=== PATIENT | male | born 2000 | race Caucasian/White ===

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

== ENCOUNTER 2022-12-01 14:32 | Emergency (ER) | payer OTHER ==
--- OUTSIDE RECORDS SUMMARY | 2022-12-01 14:36 | XMS REPORT | Continuity of Care Document ---
:2000 Author Organization [facility] t Address [address] [place] [address] Care Team Providers Name Role Phone ROSANGELA Attending Clinician Unavailable Antony Mary Attending Clinician [phone] ROSANGELA Admitting Clinician Unavailable Payers Payer Name Policy Type Policy Number Effective Date Expiration Date Patrick chapman MEDICARE [place]: [id number] 2018 [address] 00:00:00 Problems Condition Condition Condition Status Onset Resolution Last Treating Co mments Source Name Details Category Date Date Treatment Clinician Date Learning Learning Problem Active Sween y difficulti Difficulti 07-05 Co mmuni es [facility]:00: [facility] Seasonal Seasonal Problem Active Sween y allergy Allergy 07-05 Communi 00:00: ty 00 [facility] Allergies, Adverse Reactions, Alerts This patient has no known allergies or adverse reactions. Social History Smoking Status Start Date Stop Date Source Never Smoker [facility] Medications This patient has no known medications. Vital Signs Vital Name Observation Time Observation Value Comments Source BMI (Body Mass 2021-07-05 00:00:00 24.7 kg/m2 [facility] BP Systolic 2021-07-05 00:00:00 130 mm[Hg] [facility] Body Weight 2021-07-05 00:00:00 2528 [oz_av] [facility] s BP Diastolic 2021-07-05 00:00:00 78 mm[Hg] [facility] s Height 2021-07-05 00:00:00 67 [in_i] [facility] s Procedures Procedure Date / Time Performed Performing Clinician Sourbrett e XR, nasal bones 2021-07-05 00:00:00 [facility] Procedure on Nose [facility] Encounters Start End Encounter Admission Attending Care Care Encounter Source Date/Time Date/Time Type Type Clinicians Facility Department ID 2021-07-05 2021-07-05 Outpatient EMMY_R [facility] [id number] - [place] 06:58:00 06:58:00 531 [facility] 2021-07-05 2021-07-05 Outpatient Emmy [facility] [id number] 00:00:00 00:00:00 Antony [id number] [place] [id number] 2021-07-05 2021-07-05 Antony [facility] [place] - [place] 00:00:00 [facility]:00:[facility] [address] [facility] [address], HOSPITAL Clinic s [place], [id number] EMMY , Ph. [phone] Results This patient has no known results.
[2022-12-01 15:11] LABS: Absolute Lymphocytes (CBC) 2.3 K/uL (0.7-4.9); Hematocrit 48.3 % (39.6-49.0); Lymphocytes % 30.2 % (15.3-44.8); MCV 87.6 fL (80-100); MPV 8.1 fL (7.6-11.3); Platelets 184 thou/uL (152-406); RBC Red Blood Cell Count 5.51 M/uL (4.33-5.43)
[2022-12-01 15:13] LABS: Specific Gravity 1.025 (1.005-1.030); Urine Bacteria None Seen /HPF (<20); Urine Bilirubin NEGATIVE (Negative); Urine Blood Negative (Negative); Urine Clarity Clear (Clear); Urine Color Yellow (Yellow); Urine Glucose NEGATIVE (Negative); Urine Mucus 2+ /HPF (None Seen); Urine Protein TRACE (Negative); Urine RBC <5 /HPF (None Seen); Urine Urobilinogen Normal (Normal); Urine pH 5.5 (5.0-7.0)
--- NOTE | 2022-12-01 15:27 | RAD REPORT ---
EXAM DESCRIPTION: CT - Abdomen Pelvis W Contrast - 12/01/2022 3:17 pm CLINICAL HISTORY: Abdominal pain COMPARISON: none. TECHNIQUE: Computed axial tomography of the abdomen pelvis was obtained. 100 cc Isovue-300 was admin istered intravenously. Oral contrast was not requested which limits evaluation of bowel and appendix All CT scans are performed using dose optimization technique as appropriate and may include automated exposure control or mA/KV adjustment according to patient size. FINDINGS: The liver, spleen, pancreas, adrenal and kidneys appear unremarkable. There is no evidence of diverticulitis. Normal appendix Fluid within nondilated large and small bowel IMPRESSION: Fluid within nondilated large and small bowel may indicate an enteritis
[2022-12-01 15:28] LABS: Albumin 4.1 g/dL (3.4-5.0); Bilirubin Total 0.6 mg/dL (0.2-1.0); Potassium 3.7 mEq/L (3.5-5.1); Protein, Total 8.4 g/dL (6.4-8.2)
[2022-12-01] MEDS ORDERED: MORPHINE 4 MG/ML SYR ONE (17:01)
[2022-12-01] MEDS ORDERED: ONDANSETRON 4 MG/2 ML VIAL ONE (17:01)
[2022-12-01] MEDS ORDERED: FAMOTIDINE 20 MG/2 ML VIAL IV ONE (17:01)
[2022-12-01] MEDS ORDERED: NA CHLORIDE 0.9% 1,000 ML ONE (17:01)
--- NOTE | 2022-12-01 17:09 | EDPHYS ---
Physician Documentation [facility] Name: Yovanny Piña Age: 22 yrs Sex: Male : 2000 Arrival Date: 12/01/2022 Time: 14:32 Bed 11 Private MD: ED Physician Adryan Corona HPI: 12/01 17:04 This 22 yrs old Male presents to ER via Ambulatory with complaints of sesar Abdominal Pain. 17:04 The patient presents with abdominal pain in the upper abdomen, in the lower abdomen. sesar Onset: The symptoms/episode began/occurred 3 day(s) ago. The patient presents to the emergency department with nausea, diarrhea, abdominal pain, of the right upper quadrant, left upper quadrant, right lower quadrant and left lower quadrant. Historical: - Allergies: 14:46 No Known Allergies; tm6 - PMHx: 14:46 None; tm6 - PSHx: 14:46 None; tm6 - Immunization history:: Adult Immunizations up to date, Client reports having NOT received the Covid vaccine. - Social history:: Smoking status: Reported history of juuling and/or vaping. Patient/guardian denies using alcohol. ROS: 17:05 Constitutional: Negative for fever, chills, and weight loss, Eyes: Negative for injury, sesar pain, redness, and discharge, ENT: Negative for injury, pain, and discharge, Neck: Negative for injury, pain, and swelling, Cardiovascular: Negative for chest pain, palpitations, and edema, Respiratory: Negative for shortness of breath, cough, wheezing, and pleuritic chest pain, Back: Negative for injury and pain, : Negative for injury, bleeding, discharge, and swelling, MS/Extremity: Negative for injury and deformity, Skin: Negative for injury, rash, and discoloration, Neuro: Negative for headache, weakness, numbness, tingling, and seizure, Psych: Negative for depression, anxiety, suicide ideation, homicidal ideation, and hallucinations, Allergy/Immunology: Negative for hives, rash, and allergies, Endocrine: Negative for neck swelling, polydipsia, polyuria, polyphagia, and marked weight changes, Hematologic/Lymphatic: Negative for swollen nodes, abnormal bleeding, and unusual bruising, 17:05 Abdomen/GI: Positive for abdominal pain, nausea, diarrhea, abdominal cramps, Exam: 17:05 Constitutional: This is a well developed, well nourished patient who is awake, alert, sesar and in no acute distress. Head/Face: Normocephalic, atraumatic. Eyes: Pupils equal round and reactive to light, extra-ocular motions intact. Lids and lashes normal. Conjunctiva and sclera are non-icteric and not injected. Cornea within normal limits. Periorbital areas with no swelling, redness, or edema. ENT: Nares patent. No nasal discharge, no septal abnormalities noted. Tympanic membranes are normal and external auditory canals are clear. Oropharynx with no redness, swelling, or masses, exudates, or evidence of obstruction, uvula midline. Mucous membranes moist. Neck: Trachea midline, no thyromegaly or masses palpated, and no cervical lymphadenopathy. Supple, full range of motion without nuchal rigidity, or vertebral point tenderness. No Meningismus. Chest/axilla: Normal chest wall appearance and motion. Nontender with no deformity. No lesions are appreciated. Cardiovascular: Regular rate and rhythm with a normal S1 and S2. No gallops, murmurs, or rubs. Normal PMI, no JVD. No pulse deficits. Respiratory: Lungs have equal breath sounds bilaterally, clear to auscultation and percussion. No rales, rhonchi or wheezes noted. No increased work of breathing, no retractions or nasal flaring. Back: No spinal tenderness. No costovertebral tenderness. Full range of motion. Male : Normal genitalia with no discharge or lesions. Skin: Warm, dry with normal turgor. Normal color with no rashes, no lesions, and no evidence of cellulitis. MS/ Extremity: Pulses equal, no cyanosis. Neurovascular intact. Full, normal range of motion. Neuro: Awake and alert, GCS 15, oriented to person, place, time, and situation. Cranial nerves II-XII grossly intact. Motor strength 5/5 in all extremities. Sensory grossly intact. Cerebellar exam normal. Normal gait. Psych: Awake, alert, with orientation to person, place and time. Behavior, mood, and affect are within normal limits. 17:05 Abdomen/GI: Inspection: abdomen appears normal, Bowel sounds: hyperactive, in all quadrants, Palpation: mild abdominal tenderness, in all quadrants, Liver: no appreciated palpable abnormalities, Hernia: not appreciated, Vital Signs: 14:47 Pulse 72; Resp 18; Temp 99.4(TE); Pulse Ox 100% on R/A; Weight 68.04 kg; Height 5 ft. 6 tm6 in. ; Pain 8/10; 16:57 BP 137 / 100; Pulse 82; Resp 17; Pulse Ox 99% on R/A; kd3 17:56 BP 127 / 84; Pulse 84; Resp 16; Pulse Ox 99% on R/A; kd3 14:47 Body Mass Index 24.21 (68.04 kg, 167.64 cm) tm6 14:47 Pain Scale: Adult tm6 MDM: 14:53 Patient medically screened. sesar 17:06 Differential diagnosis: Nonspecific abd pain, gastritis, cholecystitis, pancreatitis, sesar diverticulitis, viral gastroenteritis, gastroenteritis, appendicitis, bowel obstruction, Cholelithiasis, diverticulitis, gastritis, gastroesophageal reflux disease, GI Bleed, Hepatitis, Irritable bowel syndrome, Mesenteric ischemia or infarction, non-specific abd pain, pancreatitis, Peptic Ulcer Disease, Peritonitis, Prostatitis, Pyelonephritis, urinary tract infection. Data reviewed: vital signs, nurses notes, lab test result(s), radiologic studies, CT scan. Consideration of Admission/Observation Escalation of care including admission/observation considered. I considered the following discharge prescriptions or medication management in the emergency department Medications were administered in the Emergency Department. See MAR. Independent interpretation of the following test(s) in the Emergency Department CT Scan: My interpretation is ENTERITIS. Test considered but Not performed: EKG: NO EKG. Historians other than the Patient: Family Member: MOM, INFORMED. Care significantly affected by the following chronic conditions: NONE. Counseling: I had a detailed discussion with the patient and/or guardian regarding the historical points, exam findings, and any diagnostic results supporting the discharge/admit diagnosis, lab results, radiology results, the need for outpatient follow up, for definitive care, a family practitioner, a research animal attendant. 12/01 14:45 Order name: CBC with Diff; Complete Time: 15:57 tm6 12/01 14:45 Order name: CMP; Complete Time: 15:57 tm6 12/01 14:45 Order name: Lipase; Complete Time: 15:57 tm6 12/01 14:45 Order name: Urinalysis w/ reflexes; Complete Time: 15:57 tm6 12/01 14:54 Order name: CT Abd/Pelvis - IV Contrast Only; Complete Time: 15:57 sesar 12/01 14:45 Order name: IV Saline Lock; Complete Time: 14:51 tm6 12/01 14:45 Order name: Labs collected and sent; Complete Time: 14:51 tm6 12/01 17:04 Order name: PO challenge; Complete Time: 17:14 sesar Administered Medications: 16:56 Drug: NS 0.9% IV 1000 ml IV at 1 bolus Per protocol; 1000 mL bolus Route: IV; Rate: 1 kd3 bolus; Site: right antecubital; 16:56 Drug: morphine IVP or IV 4 mg IVP once over 4 mins Route: IVP; Infused Over: 4 mins; kd3 Site: right antecubital; 16:56 Drug: Ondansetron IVP 4 mg IVP once; over 2 minutes Route: IVP; Site: right antecubital;kd3 16:56 Drug: Famotidine IVP 20 mg IVP once; dilute with 10 mL 0.9% NaCl; give over 2 minutes kd3 Route: IVP; Site: right antecubital; 17:58 Drug: Ciprofloxacin PO 500 mg PO once Route: PO; kd3 Disposition Summary: 12/01/22 17:09 Discharge Ordered Notes: Location: Home [facility] Problem: new sesar Symptoms: have improved sesar Condition: Stable sesar Diagnosis - Abdominal pain, Generalized sesar - Other specified noninfective gastroenteritis and colitis sesar - Diarrhea, unspecified sesar Followup: sesar - With: Private Physician - When: 2 - 3 days - Reason: Recheck today's complaints, Continuance of care, Re-evaluation by your physician Followup: sesar - With: Luis Angel Kimball MD - When: 2 - 3 days - Reason: Recheck today's complaints, Re-evaluation by your physician Discharge Instructions: - Discharge Summary Sheet sesar - Abdominal Pain, Adult sesar - Food Choices to Help Relieve Diarrhea, Adult sesar - Diarrhea, Adult sesar - Viral Gastroenteritis, Adult sesar - Viral Gastroenteritis, Adult, [id number]-gn-[id number] sesar - Abdominal Pain, Adult, [id number]-Ywnl sesar - Diarrhea, Adult, [id number] sesar Forms: - Medication Reconciliation Form sesar - Thank You Letter sesar - Antibiotic Education sesar - Prescription Opioid Use sesar - Patient Portal Instructions [facility] - Leadership Thank You Letter [facility] Prescriptions: - ondansetron 4 mg Oral Tablet,disintegrating - take 1 tablet ORAL route every 6 to 8 hours for 5 days; 20 tablet; Refills: 0, [facility] Product Selection Permitted - Cipro 250 mg Oral tablet - take 1 tablet ORAL route every 12 hours for 7 days; 14 tablet; Refills: 0, [facility] Product Selection Permitted - Flagyl 500 mg Oral Tablet - take 1 tablet ORAL route every 12 hours for 7 days; 14 tablet; Refills: 0, [facility] Product Selection Permitted - dicyclomine 10 mg/5 mL Oral solution - take 10 milliliters ORAL route 4 times per day; 200 milliliter; Refills: 0, [facility] Product Selection Permitted Signatures: Dispatcher [employer] EDAdryan Marcos MD MD cha Doucette, Kyli RN RN kd3 Car Guerrero RN RN tm6 Corrections: (The following items were deleted from the chart) 14:47 14:46 PMHx: None; tm6 tm6
--- NOTE | 2022-12-01 17:09 | ER ---
Nurse's Notes [facility] Name: Yovanny Piña Age: 22 yrs Sex: Male : 2000 Arrival Date: 12/01/2022 Time: 14:32 Bed 11 Private MD: Diagnosis: Abdominal pain, Generalized;Other specified noninfective gastroenteritis and colitis;Diarrhea, unspecified Presentation: 12/01 14:47 Chief complaint: Patient states: intermittent stomach ache/pain, all over abdomen, tm6 started Sunday. Coronavirus screen: Vaccine status: Patient reports being unvaccinated. Client denies travel out of the [place] in the last 14 days. Client indicates they have traveled out of the [place] in the last 14 days. At this time, unable to obtain information related to travel outside the [place] Ebola Screen: Patient negative for fever greater than or equal to 101.5 degrees Fahrenheit, and additional compatible Ebola Virus Disease symptoms Patient denies exposure to infectious person. Patient denies travel to an Ebola-affected area in the 21 days before illness onset. No symptoms or risks identified at this time. Initial Sepsis Screen: Does the patient meet any 2 criteria? No. Patient's initial sepsis screen is negative. Does the patient have a suspected source of infection? No. Patient's initial sepsis screen is negative. Risk Assessment: Do you want to hurt yourself or someone else? Patient reports no desire to harm self or others. Onset of symptoms was November 28, 2022. 14:47 Method Of Arrival: Ambulatory tm6 14:47 Acuity: ELIZA 3 tm6 Triage Assessment: 14:47 General: Appears in no apparent distress. Behavior is calm, cooperative, appropriate tm6 for age. Pain: Complains of pain in abdomen Quality of pain is described as aching, crampy. Neuro: Level of Consciousness is awake, alert, obeys commands, Oriented to person, place, time, situation, Appropriate for age. Respiratory: Airway is patent Respiratory effort is even, unlabored, Respiratory pattern is regular, symmetrical. GI: Abdomen is round non-distended, Abd is soft and non tender. GI: Reports diarrhea. Historical: - Allergies: 14:46 No Known Allergies; tm6 - PMHx: 14:46 None; tm6 - PSHx: 14:46 None; tm6 - Immunization history:: Adult Immunizations up to date, Client reports having NOT received the Covid vaccine. - Social history:: Smoking status: Reported history of juuling and/or vaping. Patient/guardian denies using alcohol. Screenin:57 [facility] ED Fall Risk Assessment (Adult) History of falling in the last 3 months, kd3 including since admission No falls in past 3 months (0 pts) Confusion or Disorientation No (0 pts) Intoxicated or Sedated No (0 pts) Impaired Gait No (0 pts) Mobility Assist Device Used No (0 pt) Altered Elimination No (0 pt) Score/Fall Risk Level 0 - 2 = Low Risk Maintained a safe environment. Abuse screen: Denies threats or abuse. Denies injuries from another. Nutritional screening: No deficits noted. Tuberculosis screening: No symptoms or risk factors identified. Assessment: 16:57 Neuro: Level of Consciousness is awake, alert, obeys commands, Oriented to person, kd3 place, time, situation. Cardiovascular: Patient's skin is warm and dry. Respiratory: Airway is patent Trachea midline Respiratory effort is even, unlabored, Respiratory pattern is regular, symmetrical. GI: Bowel sounds present X 4 quads. Vital Signs: 14:47 Pulse 72; Resp 18; Temp 99.4(TE); Pulse Ox 100% on R/A; Weight 68.04 kg; Height 5 ft. 6 tm6 in. ; Pain 8/10; 16:57 BP 137 / 100; Pulse 82; Resp 17; Pulse Ox 99% on R/A; kd3 17:56 BP 127 / 84; Pulse 84; Resp 16; Pulse Ox 99% on R/A; kd3 14:47 Body Mass Index 24.21 (68.04 kg, 167.64 cm) tm6 14:47 Pain Scale: Adult tm6 ED Course: 14:44 Patient arrived in ED. tm6 14:49 Triage completed. tm6 14:50 Arm band placed on left wrist. tm6 14:50 Inserted saline lock: 22 gauge in right antecubital area, using aseptic technique. tm6 14:53 Adryan Corona MD is Attending Physician. sesar 15:02 Urinalysis w/ reflexes Sent. ld1 15:02 Lipase Sent. ld1 15:02 CMP Sent. ld1 15:02 CBC with Diff Sent. ld1 15:18 CT Abd/Pelvis - IV Contrast Only In Process Unspecified. EDMS 16:41 Antonia Clement, RN is Primary Nurse. kd3 17:08 Luis Angel Kimball MD is Referral Physician. [facility] 17:57 Patient has correct armband on for positive identification. Provided Education on: . kd3 17:57 No provider procedures requiring assistance completed. IV discontinued, intact, kd3 bleeding controlled, No redness/swelling at site. Pressure dressing applied. Administered Medications: 16:56 Drug: NS 0.9% IV 1000 ml IV at 1 bolus Per protocol; 1000 mL bolus Route: IV; Rate: 1 kd3 bolus; Site: right antecubital; 16:56 Drug: morphine IVP or IV 4 mg IVP once over 4 mins Route: IVP; Infused Over: 4 mins; kd3 Site: right antecubital; 16:56 Drug: Ondansetron IVP 4 mg IVP once; over 2 minutes Route: IVP; Site: right antecubital;kd3 16:56 Drug: Famotidine IVP 20 mg IVP once; dilute with 10 mL 0.9% NaCl; give over 2 minutes kd3 Route: IVP; Site: right antecubital; 17:58 Drug: Ciprofloxacin PO 500 mg PO once Route: PO; kd3 Medication: 17:58 VIS not applicable for this client. kd3 Outcome: 17:09 Discharge ordered by . [facility] 17:57 Discharged to home ambulatory, kd3 17:57 Condition: stable 17:57 Discharge instructions given to patient, family, Instructed on discharge instructions, follow up and referral plans. Demonstrated understanding of instructions, follow-up care, medications, Prescriptions given X 4, 17:58 Patient left the ED. kd3 Signatures: Dispatcher [employer] EDCT Adryan Corona MD MD cha Sims, Lauren RN RN ld1 Antonia Clement, RN RN kd3 Car Guerrero RN RN tm6 Corrections: (The following items were deleted from the chart) 14:47 14:46 PMHx: None; tm6 tm6
[2022-12-01] MEDS ORDERED: CIPROFLOXACIN HCL 500 MG TAB ONE (18:00)
[2022-12-01 18:20] VITALS: TEMP 99.4
[2022-12-01 18:21] VITALS: O2SAT 99
[2022-12-01 18:22] VITALS: BP 127/84
== END 2022-12-01 17:58 | disposition home or self-care (01) ==
LOC: ER 14:32
DX: K52.89 Other specified noninfective gastroenteritis and colitis (principal); R10.84 Generalized abdominal pain; F17.290 Nicotine dependence, other tobacco product, uncomplicated
CPT/HCPCS: 36415; 74177; 80053; 81001; 83690; 85025; 96374; 96375; 99284; J2405; J7030; Q9967